=== PATIENT | male | born 1985 | race Two or more races ===

== ENCOUNTER 2017-07-10 13:05 | Emergency (ER) | payer MEDICAID, OTHER ==
[~2017-07-10] VITALS: Ht 160 cm; Wt 59.0 kg
[2017-07-10 13:52] VITALS: BP 127/87
[2017-07-10] MEDS ORDERED: FLUORESCEIN SOD 1 MG TEST STRIP OP ONE (15:00)
[2017-07-10] MEDS ORDERED: TETRACAINE HCL 0.5% OPTH(EYE) SOLN 4ML EACHEYE ONE (15:00)
== END 2017-07-10 15:23 | disposition home or self-care (01) ==
LOC: ER 13:12
DX: T15.01XA Foreign body in cornea, right eye, initial encounter (principal); X58.XXXA Exposure to other specified factors, initial encounter; Y93.89 Activity, other specified; Y92.89 Other specified places as the place of occurrence of the external cause; Y99.8 Other external cause status
CPT/HCPCS: 65205